=== PATIENT | female | born 1980 ===

== ENCOUNTER 2022-04-26 06:30 | Day surgery (SDC) | payer OTHER ==
[~2022-04-26] VITALS: Ht 157.5 cm; Wt 64.0 kg
[~2022-04-26 06:30] MED LIST: LEVOTHYROXINE25 MCG PO; PROZAC10 MG PO; RISPERDAL0.5 MG PO; SIMVASTATIN10 MG PO; TEGRETOL XR100 MG; VITAMIN D-40010 MCG PO
[2022-04-26] MEDS ORDERED: IBU600 MG PO (09:26)
== END 2022-04-26 11:25 | disposition home or self-care (01) ==
LOC: CIR.AMB 06:30
PROVIDERS: ATTEND Obstetrics & Gynecology Gynecology
DX: N84.0 Polyp of corpus uteri (principal); Z20.822 Contact with and (suspected) exposure to COVID-19; E11.9 Type 2 diabetes mellitus without complications; G40.802 Other epilepsy, not intractable, without status epilepticus